=== PATIENT | male | born 1995 | race American Indian/Alaskan Native ===

== ENCOUNTER 2017-01-01 17:23 | Inpatient (IN) | payer MEDICAID ==
[2017-01-01 17:23] VITALS: BMI 29.7
[2017-01-01 18:15] LABS: BASO % 1.1 % (0.0-2.0); EOS % 1.1 % (0.0-4.0); LYMPH # 1.2 K/uL (1.0-4.3); LYMPH % 33.4 % (20.0-40.0); MEAN CELL VOLUME 90.5 fL (80.0-94.0); MEAN CORPUSCULAR HEMOGLOBIN 31.1 pg (27.0-31.0); MEAN CORPUSCULAR HGB CONC 34.4 g/dL (33.0-37.0); MEAN PLATELET VOLUME 7.1 fL (7.2-11.7); MONO # 0.3 K/uL (0.0-0.8); MONO % 7.9 % (0.0-10.0); RED CELL DISTRIBUTION WIDTH 13.1 % (11.5-14.5); WHITE BLOOD COUNT 3.5 K/uL (4.8-10.8)
[2017-01-01 18:26] LABS: ALB/GLOB RATIO 1.6 (1.0-2.1); ALCOHOL SERUM < 10 mg/dl (0-10); ALKALINE PHOSPHATASE 58 U/L (38-126); ALT/SGPT 37 U/L (21-72); AST/SGOT 28 U/L (17-59); BILIRUBIN,TOTAL 0.7 mg/dL (0.2-1.3); BLOOD UREA NITROGEN 9 mg/dL (9-20); CALCIUM 9.7 mg/dl (8.6-10.4); CARBON DIOXIDE 27 mmol/L (22-30); CHLORIDE 100 mmol/L (98-107); GFR AFRICAN-AMERICAN > 60; GLUCOSE,RANDOM 83 mg/dL (75-110); POTASSIUM 4.1 mmol/L (3.6-5.2); SODIUM 142 mmol/L (132-148); TOTAL PROTEIN 6.9 g/dL (6.3-8.3)
[2017-01-01 18:36] LABS: URINE BILIRUBIN NEGATIVE (NEGATIVE); URINE BLOOD NEGATIVE (NEGATIVE); URINE COLOR Straw (YELLOW); URINE GLUCOSE (UA) NORMAL (Normal); URINE KETONE NEGATIVE (NEGATIVE); URINE LEUKOCYTE ESTERASE NEG Leu/uL (Negative); URINE PROTEIN NEGATIVE (NEGATIVE); URINE UROBILINOGEN NORMAL mg/dL (0.2-1.0); WBC URINE < 1 /hpf (0-5)
--- NOTE | 2017-01-01 18:46 | C.PDOC ---
History Of Present Illness Pt is here requesting detox from Heroin. Time Seen by Provider: 01/01/17 17:45 Chief Complaint (Nursing): Substance Abuse History Per: Patient, Family Onset/Duration Of Symptoms: Days Current Symptoms Are (Timing): Still Present Suicide/Self Injury Attempted (Context): None Modifying Factor(s): Narcotics Severity: Moderate Associated Symptoms: denies: Suicidal Thoughts, Suicidal Plan Additional History Per: Prior Records Past Medical History Reviewed: Historical Data, Nursing Documentation, Vital Signs Vital Signs: Last Vital Signs Temp 98.8 F 01/01/17 17:27 Pulse 83 01/01/17 17:27 Resp 18 01/01/17 17:27 BP 118/83 01/01/17 17:27 Pulse Ox 100 01/01/17 18:47 - Medical History PMH: Asthma Surgical History: No Surg Hx - [facility] Procedures DETOXIFICATION SERVICES FOR SUBSTANCE ABUSE TREATMENT (01/01/16) INJECT ANTIBIOTIC (06/17/13) INJECT/INFUSE NEC (07/01/14) NEBULIZER THERAPY (03/02/07) PSYCHIA INTERV/EVAL NEC (07/01/14) SUTURE OF LIP LACERATION (11/26/13) TETANUS TOXOID ADMINIST (07/16/12) VENOUS PUNCTURE NEC (07/01/14) Family History: States: Unknown Family Hx - Social History Hx Tobacco Use: Yes Hx Alcohol Use: Yes Hx Substance Use: Yes (Snorts heroin) - Immunization History Hx Tetanus Toxoid Vaccination: Yes (2003) Hx Influenza Vaccination: No Hx Pneumococcal Vaccination: No Review Of Systems Except As Marked, All Systems Reviewed And Found Negative. Constitutional: Negative for: Fever, Weakness Cardiovascular: Negative for: Chest Pain Respiratory: Negative for: Shortness of Breath Gastrointestinal: Negative for: Vomiting, Abdominal Pain Musculoskeletal: Negative for: Neck Pain Skin: Negative for: Rash Neurological: Negative for: Weakness, Numbness Psych: Negative for: Psychosis Physical Exam - Physical Exam Appears: Non-toxic, No Acute Distress Skin: Normal Color, Warm, Dry, No Rash Head: Atraumatic, Normacephalic Eye(s): bilateral: Normal Inspection, PERRL, EOMI Neck: Normal ROM, Supple Cardiovascular: Rhythm Regular Respiratory: Normal Breath Sounds, No Accessory Muscle Use Gastrointestinal/Abdominal: Soft, No Tenderness Back: No CVA Tenderness Extremity: Normal ROM Neurological/Psych: Oriented x3, Normal Motor, Normal Sensation ED Course And Treatment - Laboratory Results Result Diagrams: 01/01/17 18:06 01/01/17 18:06 Lab Interpretation: No Acute Changes O2 Sat by Pulse Oximetry: 100 Pulse Ox Interpretation: Normal Progress Note: Pt is medically stable for detox admission. Disposition Counseled Patient/Family Regarding: Studies Performed, Diagnosis, Smoking Cessation - Disposition Disposition: HOSPITALIZED Disposition Time: 18:59 Condition: STABLE - Clinical Impression Clinical Impression: Opioid use disorder, severe, dependence Decision To Admit - Pt Status Changed To: Hospital Disposition Of: Inpatient - Admit Certification Admit to Inpatient:: After my assessment, the patient will require hospitalization for at least two midnights. This is because of the severity of symptoms shown, intensity of services needed, and/or the medical risk in this patient being treated as an outpatient. - InPatient: Physician Admission Certification: I certify that this patient requires 2 or more midnights of care for the following reason:: Detox. - . Bed Request Type: Detox Admitting Physician: Gina Escoto Patient Diagnosis: Opioid use disorder, severe, dependence
--- NOTE | 2017-01-01 19:20 | PCM.BM ---
<Jeannie Langston - Last Filed: 01/01/17 19:22> Treatment Plan Problems - Problems identified on initial assessmt Problem 1 Date Initiated: 01/01/17 Time Initiated: 19:23 Assessment reference: NA Status: Active potiential for sibilant musical ronchi related to airway constriction Date Initiated: 01/01/17 Time Initiated: 19:24 Assessment reference: NA Status: Active potiential for opiate withdrawal Date Initiated: 01/01/17 Time Initiated: 19:25 Assessment reference: NA Status: Active Treatment assets and liabiliti Patient Assests: cooperative, ADL independent, physically healthy, good past tx response Patient Liabilities: substance abuse - Milieu Protocol Maintain good personal hygiene: daily Encourage regular showers, daily Remind patient to perform daily oral care, daily Assist patient to perform ADL's Maintain personal safety: every shift Educate patient to report safety concerns to staff, every shift Monitor environment for contraband/sharps Medication safety: Monitor for expected outcome, potential side effects: every shift, Assess barriers to learning: every shift, Assess readiness for medication education: every shift <Endy Pederson - Last Filed: 01/04/17 13:30> - Diagnosis (1) Opioid use disorder, severe, dependence Status: Acute Interventions: 01/04/17 13:29 * Assess 7x/week regarding severity of withdrawal * Educate regarding risks, benefits, side effects and alternatives of medications * Use Motivational Interviewing for abstinence * Use CBT for relapse prevention * Medication management for withdrawal symptoms * Encourage medication assisted treatment *
[2017-01-01] MEDS: Albuterol HFA 90 mcg/actuation (8 g) INH PRN (22:33)
[2017-01-02] MEDS ORDERED: Buprenorphine Hydrochloride 2 mg SL ONE ×2 (09:41→11:00)
[2017-01-02] MEDS: Albuterol HFA 90 mcg/actuation (8 g) INH PRN ×2 (14:31→23:01)
[2017-01-03] MEDS: Buprenorphine Hydrochloride 2 mg SL SCH (12:02)
[2017-01-03 15:36] VITALS: RESP 18
--- NOTE | 2017-01-03 19:54 | PCM.PSYCH ---
Initial Psychiatric Evaluation - Initial Psychiatric Evaluation Legal Status: Capacity (I want to get clean) Chief Complaint (in patient's own words): i want to get clean Patient's Reaction to Hospitalization: i was glad there was abed available. History of Present Illness and Precipitating Events: PT IS A 21 YEAR OLD SINGL, DOMICILED UNEMPLOYED WITH 2 CHILDREN A SON AGE 4 ZEKE DAUGHTER AGE 1 MALE WHO PREASENTED WITH HEROIN USE AND COCAINE USE. PT STARTING USING AG17. HE USES 15-20 BAGS A DAY. HE STARTWS USING CRACK/COCAINE AGE 18. HE HAS 1 PREVIOUS DETOX. pARWNTS WHE HE WAS 2 YEARS OLD. HE HAS 1 FULL BROTHER AND 6 HALF-SISTERS AND 7 HALF BROTHERS. ALL SHARE THE SAME FATHER. HE HAS NEVER BEEN IN A PSYCH HOSPITAL, HE HAS NEVER ATTEMPTED SUICIDE HE HAS BEEN PRESCRIBED MEDS ON AN OUTPATIENT BASIS fFAMILY PSYCH HISTORY: PER PT MOTHER IS ALWAYS TRYING TO KILL HERSELF. FAMILY SUBSTANCE ABUSE MOTHER, MATERNAL GRAND MOTHER AND MATERNAL UNCLE ALL USE HEROIN AND COCAINE PT HAS B EEN ARRESTED FOR SHOPLIFTING AND THEFT.hE SPENT 8 MONTHS IN [facility] [place] . HE LEFT [employer] WHEN HE WAS IN THE 10TH GRADE. HE NEVER EARNED A GED. HE LASY WORKED LAST MONTH. PT'S WITHDRAWAL SYMPTOMS ARE: RHINORRHEA STOMACH "BUBBLING, INSOMNIAPOOR APPETITE MYALGIAS ARHTAGLIAS Current Medications: Active Medications Generic Name Dose Route Start Last Admin Trade Name Freq PRN Reason Stop Dose Admin Albuterol 1 puff 01/01/17 20:13 01/02/17 23:01 Ventolin Hfa 90 Mcg/Actuation (8 G) INH 2 inhaler RQ6 PRN Administration musical ronchi Buprenorphine HCl 6 mg 01/03/17 10:00 01/03/17 12:02 Subutex SL 01/06/17 09:59 4 mg DAILY JODEE Administration Taper Hydroxyzine HCl 50 mg 01/02/17 10:55 01/03/17 12:07 Atarax PO 50 mg Q6 PRN Administration Anxiety Ibuprofen 600 mg 01/01/17 22:00 01/02/17 12:14 Motrin Tab PO 600 mg Q6 PRN Administration pain Trazodone HCl 50 mg 01/01/17 19:41 01/02/17 21:42 Desyrel PO 50 mg HS PRN Administration Insomnia Past Psychiatric History - Past Psychiatric History Prior Professional Help: SEE HPI Pertinent Medical Hx (Current Medical&Sleep Prob, Allergies): Allergies Allergy/AdvReac Type Severity Reaction Status Date / Time lemon Allergy RASH Verified 01/01/17 17:48 peanut Allergy RASH Verified 01/01/17 17:48 Albuterol HFA [Ventolin HFA 90 mcg/actuation (8 g)] 1 puff INH RQ4 PRN #0 inhaler 01/02/16 Review of Systems - Constitutional Constitutional: Chills, Sweats, Weakness, Malaise - EENT Eyes: UNREMARKABLE Ears: UNREMARKABLE Additional comments: RHINORRHEA - Cardiovascular Cardiovascular: UNREMARKABLE - Respiratory Respiratory: UNREMARKABLE - Gastrointestinal Gastrointestinal: Cramping, Loose Stools, Nausea, Vomiting - Genitourinary Genitourinary: UNREMARKABLE - Reproductive: Male Reproductive:Male: UNREMARKABLE - Musculoskeletal Musculoskeletal: Arthralgias, Myalgias - Integumentary Integumentary: UNREMARKABLE - Neurological Neurological: UNREMARKABLE - Psychiatric Psychiatric: UNREMARKABLE - Endocrine Endocrine: UNREMARKABLE - Hematologic/Lymphatic Hematologic: UNREMARKABLE Mental Status Examination - Personal Presentation Personal Presentation: Looks younger than stated age - Affect Affect: Constricted - Motor Activity Motor Activity: Calm - Reliability in Providing Information Reliability in Providing Information: Good - Speech Speech: Organized - Mood Mood: Anxious - Formal Thought Process Formal Thought Process: No Impairment - Obsessions/Compulsions Obsessions: None Compulsions: None - Cognitive Functions Orientation: Person, Place, Situation, Time Sensorium: Alert Attention/Concentration: Attentive Abstract Thinking: As evidence by abstract perception of proverbs Estimate of Intelligence: Average Judgement: Intact, as evidence by: Insight regarding need for hospitalization Memory: Recent intact, as evidence by: Ability to recall events of the day, Remote intact, as evidenced by: Abilit to recall sig. life events - Risk Risk: Withdrawal - Strength & Assets Inventory Strength & Assets Inventory: Intelligence, Employment history, Cooperative - Limitations Limitations: Living alone DSM 5 DX - DSM 5 DSM 5 Diagnosis: OPIATE USE DISORDER AL CBT RECREATIONAL,GROUP AND MILIEU THERAPY SUPPORTIVE PSYCHOTHERAPY OPIATE WITHDRAWAL SUBUTEX AND PRNS NEEDED COCAINE USE DISORDER AL CBT GROUP THERAPY SUPPO\\RTIVE PSYCHOTHERAPY COCAINE WITHDRAWAL PRNS NECESSARY - Recommended/Plan of Treatment Treatment Recommendations and Plan of Treatment: SEE ABOVE Projected ELOS: 5 DAYS Prognosis: GOOD WITH TREATMENT Discharge Plan and Discharge Criteria: NO ACUTE WITHDRAWAL SYMPTOMS KALEIDOSCOPE - Smoking Cessation Smoking Cessation Initiated: Yes
--- NOTE | 2017-01-03 20:08 | PCM.PYCHPN ---
Psychiatric Progress Note - Psychiatric Progress Note Patient seen today, length of contact: 17 MIN Patient Chief Complaint: i INEED HELP TO STAY SOBER Problems Identified/Issues Discussed: RELAPSE PREVENTION PAWS Medical Problems: NOTHING ACUTE Diagnostic Results: REVIEWED DSM 5 Symptoms Update: INSOMNIA ARTHRAGLIAS Medication Change: Yes (TAPER CHANGES DAILY) Medical Record Reviewed: Yes Mental Status Examination - Cognitive Function Orientation: Person, Place, Situation, Time Memory: Intact Concentration: WNL Association: WN Fund of Knowledge: WNL - Mood Mood: Anxious - Affect Affect: Constricted - Speech Speech: Appropriate - Formal Thought Process Formal Thought Process: No Impairment - Suicidal Ideation Suicidal Ideation: No - Homicidal Ideation Homicidal Ideation: No Goal/Treatment Plan - Goal/Treatment Plan Progress Toward Problem(s) and Goals/Treatment Plan: OPIATE WITHDRAWAL SUBUTEX OPIATE USE DISORDER ME CBT GROUP.MILIEU AND RECREACOTIONAL THERAPY SUPPORTIVE PSYCHOTHERAPY COCAINE WITHDRAWAL SUPPORTIVE PSYCHOTHERAPY GROUPS COCAINE USE DISORDER ME CBT SUPPORTIVE PSYCHOTHERAPY Estimated Date of D/C: 01/05/17 - Smoking Cessation Smoking Cessation Initiated: Yes
[2017-01-04] MEDS: Buprenorphine Hydrochloride 2 mg SL SCH (09:03)
--- NOTE | 2017-01-04 09:49 | PCM.PYCHDC ---
Mental Status Examination - Mental Status Examination Orientation: Person, Place, Situation, Time Memory: Intact Mood: Anxious Affect: Broad Speech: Appropriate Attention: WNL Concentration: WNL Association: WNL Fund of Knowledge: Poor Formal Thought Process: No Impairment Suicidal Ideation: No Current Homicidal Ideation?: No Discharge Summary - Discharge Note Reason for Hospitalization: Opioid detox Consultations:: List each consultation separately and include: 1. Reason for request. 2. Findings. 3. Follow-up Summary of Hospital Course include:: 1. Description of specific treatment plan utilized for patients during their course of treatmen. 2. Summarize the time- course for resolution of acute symptoms and/or regressed behaviors. 3. Describe issues identified and worked on during hospitalization. 4. Describe medication utilized. 5. Describe medical problems identified and treated. 6. Reassessment of suicide risk Summary of Hospital Course: The pt was admitted and started on treatment with psychotherapy, support, psychoeducation and medications. UT and CBT used. The pt attended groups and activities, as well as milieu therapy. All the risks and benefits of medications are discussed and the patient understood and agreed. The pt improved with the treatments provided. However, he rushed his treatment and skipped a dose. He claimed he was sedated and was doing ok with this so far Risks discussed. After care discussed with the patient. He asked for a referral to an IOP - Final Diagnosis (DSM 5) Condition upon Discharge: STABLE DSM 5: Opioid withdrawal Opioid use d/o - severe Cocaine use d/o - severe Disposition: HOME/ ROUTINE Follow-up Treatment Plan: Continue below medications after discharge. Follow after care plan as discussed. Use relapse prevention skills Return to ER or call 911 if suicidal, homicidal or symptoms relapse. Stay away from stress, alcohol and drugs. See primary doctor once a year. Prescriptions/Medication Reconciliation: Albuterol HFA [Ventolin HFA 90 mcg/actuation (8 g)] 1 puff INH RQ6 PRN #1 inhaler PRN Reason: musical ronchi hydrOXYzine HCl [Atarax] 50 mg PO BID PRN #60 tab PRN Reason: Anxiety traZODone [Desyrel] 50 mg PO HS PRN #30 tab PRN Reason: Insomnia
[2017-01-04 11:04] VITALS: BP 125/72; PULSE 85; TEMP 98; O2SAT 100
== END 2017-01-04 11:00 | disposition home or self-care (01) | DRG 745 ==
LOC: C.ER 17:23 → C.7D 18:59
PROVIDERS: ADMIT Psychiatry & Neurology Psychiatry; ATTEND Psychiatry & Neurology Psychiatry
PROC: HZ2ZZZZ Detoxification Services for Substance Abuse Treatment (ICD-10-PCS; principal; 2017-01-01)
PROC: GZ56ZZZ Individual Psychotherapy, Supportive (ICD-10-PCS; 2017-01-01)
DX: F11.23 Opioid dependence with withdrawal (principal); F14.10 Cocaine abuse, uncomplicated; F17.210 Nicotine dependence, cigarettes, uncomplicated; J45.909 Unspecified asthma, uncomplicated; G47.00 Insomnia, unspecified

== ENCOUNTER → 2017-06-08 19:32 | Emergency (ER) | payer SELFPAY ==
[2017-06-08 19:32] VITALS: BMI 29.7
== END | disposition left against medical advice (07) ==
LOC: C.ER 19:32
DX: Z02.89 Encounter for other administrative examinations (principal)

== ENCOUNTER 2017-06-13 15:45 | Inpatient (IN) | payer SELFPAY ==
[2017-06-13 15:45] VITALS: BMI 29.7
[2017-06-13 17:12] LABS: URINE BILIRUBIN NEGATIVE (NEGATIVE); URINE BLOOD NEGATIVE (NEGATIVE); URINE CLARITY Clear (Clear); URINE COLOR Yellow (YELLOW); URINE GLUCOSE (UA) NORMAL (Normal); URINE LEUKOCYTE ESTERASE NEG Leu/uL (Negative); URINE NITRATE NEGATIVE (NEGATIVE); URINE PROTEIN NEGATIVE (NEGATIVE); URINE UROBILINOGEN NORMAL mg/dL (0.2-1.0)
[2017-06-13 17:47] LABS: BARBITURATES, UR NEGATIVE (NEGATIVE); BENZODIAZEPINES, UR NEGATIVE (NEGATIVE); PHENCYCLIDINE, UR NEGATIVE (NEGATIVE)
[2017-06-13 18:06] LABS: OPIATES, UR POSITIVE (NEGATIVE)
[2017-06-13 19:49] LABS: BASO % 0.6 % (0.0-2.0); EOS # 0.3 K/uL (0.0-0.7); EOS % 4.2 % (0.0-4.0); HEMOGLOBIN 13.3 g/dL (12.0-18.0); LYMPH # 2.1 K/uL (1.0-4.3); LYMPH % 35.2 % (20.0-40.0); MEAN CELL VOLUME 92.3 fL (80.0-94.0); MEAN CORPUSCULAR HEMOGLOBIN 31.6 pg (27.0-31.0); MEAN CORPUSCULAR HGB CONC 34.2 g/dL (33.0-37.0); MEAN PLATELET VOLUME 7.1 fL (7.2-11.7); MONO # 0.4 K/uL (0.0-0.8); MONO % 7.2 % (0.0-10.0); NEUT # 3.2 K/uL (1.8-7.0); NEUT % 52.8 % (50.0-75.0); NRBC % 0.1 % (0.0-2.0); RBC 4.22 Mil/uL (4.40-5.90); RED CELL DISTRIBUTION WIDTH 12.6 % (11.5-14.5); WHITE BLOOD COUNT 6.1 K/uL (4.8-10.8)
[2017-06-13 20:02] LABS: ALB/GLOB RATIO 1.6 (1.0-2.1); ALBUMIN 4.1 g/dL (3.5-5.0); ALT/SGPT 26 U/L (21-72); AST/SGOT 27 U/L (17-59); BLOOD UREA NITROGEN 14 mg/dL (9-20); CALCIUM 9.3 mg/dl (8.6-10.4); GFR AFRICAN-AMERICAN > 60; GFR NON-AFRICAN AMERICAN > 60
--- NOTE | 2017-06-13 20:52 | C.PDOC ---
History Of Present Illness Pt is here requesting detox from Heroin. Time Seen by Provider: 06/13/17 18:09 Chief Complaint (Nursing): Substance Abuse History Per: Patient Onset/Duration Of Symptoms: Days Current Symptoms Are (Timing): Still Present Suicide/Self Injury Attempted (Context): None Modifying Factor(s): Narcotics, Crack Severity: Moderate Associated Symptoms: denies: Suicidal Thoughts, Suicidal Plan Additional History Per: Prior Records Past Medical History Reviewed: Historical Data, Nursing Documentation, Vital Signs Vital Signs: Last Vital Signs Temp 98.1 F 06/13/17 16:47 Pulse 78 06/13/17 16:47 Resp 16 06/13/17 16:47 BP 144/80 06/13/17 16:47 Pulse Ox 98 06/13/17 16:47 - Medical History PMH: Asthma - [facility] Procedures DETOXIFICATION SERVICES FOR SUBSTANCE ABUSE TREATMENT (01/01/17) INDIVIDUAL PSYCHOTHERAPY, SUPPORTIVE (01/01/17) INJECT ANTIBIOTIC (06/17/13) INJECT/INFUSE NEC (07/01/14) NEBULIZER THERAPY (03/02/07) PSYCHIA INTERV/EVAL NEC (07/01/14) SUTURE OF LIP LACERATION (11/26/13) TETANUS TOXOID ADMINIST (07/16/12) VENOUS PUNCTURE NEC (07/01/14) Family History: States: Unknown Family Hx - Social History Hx Tobacco Use: Yes Hx Alcohol Use: No (DENIED) Hx Substance Use: Yes (Snorts Heroin and Smokes Cocaine) - Immunization History Hx Tetanus Toxoid Vaccination: Yes (2003) Hx Influenza Vaccination: No Hx Pneumococcal Vaccination: No Review Of Systems Except As Marked, All Systems Reviewed And Found Negative. Constitutional: Negative for: Fever, Weakness Cardiovascular: Negative for: Chest Pain Respiratory: Negative for: Shortness of Breath Gastrointestinal: Negative for: Vomiting, Abdominal Pain Musculoskeletal: Negative for: Neck Pain Skin: Negative for: Rash Neurological: Negative for: Weakness, Numbness Psych: Negative for: Psychosis Physical Exam - Physical Exam Appears: Non-toxic, No Acute Distress Skin: Normal Color, Warm, Dry, No Rash Head: Atraumatic, Normacephalic Eye(s): bilateral: PERRL, EOMI Neck: Normal ROM, Supple Cardiovascular: Rhythm Regular Respiratory: Normal Breath Sounds, No Accessory Muscle Use Gastrointestinal/Abdominal: Soft, No Tenderness Extremity: Normal ROM Neurological/Psych: Oriented x3, Normal Motor, Normal Sensation ED Course And Treatment - Laboratory Results Result Diagrams: 06/13/17 19:44 06/13/17 19:44 Lab Interpretation: No Acute Changes O2 Sat by Pulse Oximetry: 98 Pulse Ox Interpretation: Normal Progress Note: Pt is medically stable for detox admission. Disposition Counseled Patient/Family Regarding: Studies Performed, Diagnosis, Smoking Cessation - Disposition Disposition: HOSPITALIZED Disposition Time: 20:59 Condition: STABLE - Clinical Impression Clinical Impression: Opioid use disorder, severe, dependence Decision To Admit - Pt Status Changed To: Hospital Disposition Of: Inpatient - Admit Certification Admit to Inpatient:: After my assessment, the patient will require hospitalization for at least two midnights. This is because of the severity of symptoms shown, intensity of services needed, and/or the medical risk in this patient being treated as an outpatient. - InPatient: Physician Admission Certification: I certify that this patient requires 2 or more midnights of care for the following reason:: Detox. - . Bed Request Type: Detox Admitting Physician: Nidia Lockwood Patient Diagnosis: Opioid use disorder, severe, dependence
--- NOTE | 2017-06-13 21:30 | PCM.BM ---
<Jeannie Langston - Last Filed: 06/13/17 21:28> Treatment Plan Problems - Problems identified on initial assessmt potiential for opiate withdrawal Date Initiated: 06/13/17 Time Initiated: 21:29 Assessment reference: NA Status: Active Treatment assets and liabiliti Patient Assests: cooperative, ADL independent, physically healthy Patient Liabilities: substance abuse, legal issue - Milieu Protocol Maintain good personal hygiene: daily Encourage regular showers, daily Remind patient to perform daily oral care, daily Assist patient to perform ADL's Maintain personal safety: every shift Educate patient to report safety concerns to staff, every shift Monitor environment for contraband/sharps Medication safety: Monitor for expected outcome, potential side effects: every shift, Assess barriers to learning: every shift, Assess readiness for medication education: every shift <Endy Pederson - Last Filed: 06/16/17 01:04> - Diagnosis (1) Opioid use disorder, severe, dependence Status: Acute Interventions: 06/16/17 01:04 * Assess 7x/week regarding severity of withdrawal * Educate regarding risks, benefits, side effects and alternatives of medications * Use Motivational Interviewing for abstinence * Use CBT for relapse prevention * Medication management for withdrawal symptoms * Encourage medication assisted treatment * <Lyly Qureshi - Last Filed: 06/16/17 11:32> Family Contact Family involvement: Patient does not wish Family/SO involvement - Goals for Treatment Patient goals for treatment: Complete detox and apply for STR. Discharge/Continuing Care - Education Needs Education Needs: Patient Medication, Patient Diagnosis/Disease Process, Patient Coping Skills, Patient Anger Management skills, Patient Placement options, Patient Community resources, Significant Other Medication, Significant Other Diagnosis/Disease Process, Significant Other Coping Skills, Significant Other Anger Management skills, Significant Other Placement options, Significant Other Community resources - Discharge Discharge Criteria: No longer exhibiting s/s of withdrawal, Reduction of target symptoms Discharge to:: Substance Abuse Rehab - Treatment Team Participation Patient/Family/SO Statement: 06/16/17 11:32 "I think I wanna go from here to a rehab." Discussed with Family/SO: No Was Patient/Family/SO present at Treatment Team Meeting: Yes
[2017-06-13 21:40] VITALS: RESP 18
[2017-06-13] MEDS ORDERED: Albuterol HFA 90 mcg/actuation (8 g) INH PRN (22:27)
--- NOTE | 2017-06-14 13:11 | PCM.PSYCH ---
Initial Psychiatric Evaluation - Initial Psychiatric Evaluation Type of Admission: Voluntary Legal Status: Capacity Chief Complaint (in patient's own words): "Heroin" History of Present Illness and Precipitating Events: The patient is seen, chart reviewed and case discussed. This is a 21-year-old -[place] male, single with 2 children age 24 who are with their mother's right now. The patient lives with his new and her 8 -year-old daughter but according to staff he may have been drawn out by his 's mother recently. The was in detox here last week and allegedly he was thrown out of home during that time. The patient is going on and off jobs. He is known from a previous admission. He is here for heroin detox; using 15 bags intranasally for the past 3 years. He has been also using crack cocaine during the same time, and smoking marijuana but not every day. He smokes 5 cigarettes a day. He denies alcohol and other drugs. He has been to detox 3 times but never to rehabilitation. He denies psych symptoms. Past psych history: Denies Family psych history: Mother used heroin. Medical history: Asthma and hepatitis C Current Medications: Active Medications Generic Name Dose Route Start Last Admin Trade Name Freq PRN Reason Stop Dose Admin Albuterol 1 puff 06/13/17 22:27 Ventolin Hfa 90 Mcg/Actuation (8 G) INH RQ6 PRN Shortness of Breath Clonidine HCl 0.1 mg 06/13/17 22:04 Catapres PO Q8 PRN COWS Score More or Equal to 5 Hydroxyzine HCl 25 mg 06/13/17 22:07 Atarax PO TID PRN Anxiety Ibuprofen 600 mg 06/13/17 22:06 Motrin Tab PO TID PRN Pain, moderate (4-7) Loperamide HCl 2 mg 06/13/17 22:04 Imodium PO Q8 PRN Diarrhea Ondansetron HCl 4 mg 06/13/17 22:04 Zofran Tab PO Q8 PRN Nausea/Vomiting Trazodone HCl 50 mg 06/13/17 22:05 06/13/17 22:56 Desyrel PO 50 mg HS PRN Administration Insomnia Past Psychiatric History - Past Psychiatric History Previous Treatment History: None Pertinent Medical Hx (Current Medical&Sleep Prob, Allergies): Allergies Allergy/AdvReac Type Severity Reaction Status Date / Time lemon Allergy RASH Verified 01/01/17 17:48 peanut Allergy RASH Verified 01/01/17 17:48 Albuterol HFA [Ventolin HFA 90 mcg/actuation (8 g)] 1 puff INH RQ4 PRN #0 inhaler 01/02/16 Albuterol HFA [Ventolin HFA 90 mcg/actuation (8 g)] 1 puff INH RQ6 PRN #1 inhaler 01/04/17 hydrOXYzine HCl [Atarax] 50 mg PO BID PRN #60 tab 01/04/17 traZODone [Desyrel] 50 mg PO HS PRN #30 tab 01/04/17 Review of Systems - Neurological Neurological: UNREMARKABLE - Psychiatric Psychiatric: Abnormal Sleep Pattern, Anxiety, Irritability. absent: Hallucinations, Homicidal Ideation, Paranoia, Suicidal Ideation Mental Status Examination - Personal Presentation Personal Presentation: Looks stated age - Affect Affect: Constricted - Motor Activity Motor Activity: Calm - Reliability in Providing Information Reliability in Providing Information: Fair - Speech Speech: Organized - Mood Mood: Anxious - Formal Thought Process Formal Thought Process: No Impairment - Cognitive Functions Orientation: Person, Place, Situation, Time Sensorium: Alert Attention/Concentration: Attentive Estimate of Intelligence: Average Judgement: Intact, as evidence by: Insight regarding need for hospitalization Memory: Recent intact, as evidence by: Ability to recall events of the day, Remote intact, as evidenced by: Ability to recall historical events - Risk Risk: Withdrawal, Diminished functioning - Strength & Assets Inventory Strength & Assets Inventory: Cooperative DSM 5 DX - DSM 5 DSM 5 Diagnosis: Opioid withdrawal Opioid use - severe cocaine use d/o - severe cannabis use d/o - moderate - Recommended/Plan of Treatment Treatment Recommendations and Plan of Treatment: Start detox Gabapentin for augmentation As needed medications All risks, benefits and alternatives of the meds discussed, and the pt agreed and understood. Attend groups and activities Supportive therapy and psychoeducation MA for abstinence CBT for relapse prevention Encourage MAT Refer to rehab or IOP, and self-help groups Smoking cessation with MA Nicotine patch if needed 34 min Projected ELOS: 4-5 days Prognosis: good with treatment - Smoking Cessation Smoking Cessation Initiated: Yes
[2017-06-14] MEDS ORDERED: Buprenorphine Hydrochloride 2 mg SL ONE ×2 (16:06→17:15)
[2017-06-14] MEDS: Vitamins A & D Oint UD Foilpak TOP PRN (21:03)
[2017-06-15] MEDS: Buprenorphine Hydrochloride 2 mg SL SCH (11:27)
[2017-06-15] MEDS: Vitamins A & D Oint UD Foilpak TOP PRN (11:50)
--- NOTE | 2017-06-16 01:04 | PCM.PYCHPN ---
Psychiatric Progress Note - Psychiatric Progress Note Patient seen today, length of contact: 15 min Patient Chief Complaint: "OK" Problems Identified/Issues Discussed: The pt is seen, chart reviewed, case discussed with staff. The pt is compliant with medications and reports no side-effects. Symptoms are improving but needs more time to stabilize. After care discussed, support and psychoeducation given. Medication Change: Yes (detox changes daily) Medical Record Reviewed: Yes Mental Status Examination - Cognitive Function Orientation: Person, Place, Situation, Time Memory: Intact Attention: Poor Concentration: Poor Association: WNL Fund of Knowledge: Poor - Mood Mood: Anxious - Affect Affect: Constricted - Speech Speech: Appropriate - Formal Thought Process Formal Thought Process: No Impairment - Suicidal Ideation Suicidal Ideation: No - Homicidal Ideation Homicidal Ideation: No Goal/Treatment Plan - Goal/Treatment Plan Need for Continued Stay: Discharge may exacerbated symptoms, Severe functional impairment Progress Toward Problem(s) and Goals/Treatment Plan: Start detox Gabapentin for augmentation As needed medications All risks, benefits and alternatives of the meds discussed, and the pt agreed and understood. Attend groups and activities Supportive therapy and psychoeducation [place] for abstinence CBT for relapse prevention Encourage MAT Refer to rehab or IOP, and self-help groups Smoking cessation with [place] Nicotine patch if needed
[2017-06-16] MEDS: Buprenorphine Hydrochloride 2 mg SL SCH (09:41)
[2017-06-16 10:31] VITALS: BP 93/57; PULSE 65; TEMP 97.5; O2SAT 98
--- NOTE | 2017-06-16 11:08 | PCM.PYCHDC ---
Mental Status Examination - Mental Status Examination Orientation: Person Discharge Summary - Discharge Note Consultations:: List each consultation separately and include: 1. Reason for request. 2. Findings. 3. Follow-up Summary of Hospital Course include:: 1. Description of specific treatment plan utilized for patients during their course of treatmen. 2. Summarize the time- course for resolution of acute symptoms and/or regressed behaviors. 3. Describe issues identified and worked on during hospitalization. 4. Describe medication utilized. 5. Describe medical problems identified and treated. 6. Reassessment of suicide risk Summary of Hospital Course: The patient is seen, chart reviewed and case discussed. This is a 21-year-old -Eth[place]ian male, single with 2 children age 24 who are with their mother's right now. The patient lives with his new and her 8 -year-old daughter but according to staff he may have been drawn out by his 's mother recently. The was in detox here last week and allegedly he was thrown out of home during that time. The patient is going on and off jobs. He is known from a previous admission. He is here for heroin detox; using 15 bags intranasally for the past 3 years. He has been also using crack cocaine during the same time, and smoking marijuana but not every day. He smokes 5 cigarettes a day. He denies alcohol and other drugs. He has been to detox 3 times but never to rehabilitation. He denies psych symptoms. Past psych history: Denies Family psych history: Mother used heroin. Medical history: Asthma and hepatitis C - Diagnosis (1) Opioid use disorder, severe, dependence Status: Acute - Final Diagnosis (DSM 5) Condition upon Discharge: STABLE Disposition: AGAINST MEDICAL ADVICE Follow-up Treatment Plan: Start detox Gabapentin for augmentation As needed medications All risks, benefits and alternatives of the meds discussed, and the pt agreed and understood. Attend groups and activities Supportive therapy and psychoeducation [place] for abstinence CBT for relapse prevention Encourage MAT Refer to rehab or IOP, and self-help groups Smoking cessation with [place] Nicotine patch if needed
== END 2017-06-16 11:23 | disposition left against medical advice (07) | DRG 894 ==
LOC: C.ER 15:45 → C.7D 21:00
PROVIDERS: ADMIT Psychiatry & Neurology Psychiatry; ATTEND Psychiatry & Neurology Psychiatry
DX: F11.23 Opioid dependence with withdrawal (principal); F12.90 Cannabis use, unspecified, uncomplicated; F14.90 Cocaine use, unspecified, uncomplicated; F17.210 Nicotine dependence, cigarettes, uncomplicated; J45.909 Unspecified asthma, uncomplicated

== ENCOUNTER 2017-08-18 14:10 | Emergency (ER) | payer OTHER ==
[2017-08-18 14:10] VITALS: BMI 29.7
[2017-08-18 14:17] VITALS: BP 114/78; PULSE 78; RESP 16; TEMP 98.3; O2SAT 99
--- NOTE | 2017-08-18 14:50 | C.PDOC ---
History Of Present Illness 21-year-old male, presents to the emergency department requesting detox from heroin. Denies any nausea/vomiting, withdrawal, SI/HI. Time Seen by Provider: 08/18/17 14:37 Chief Complaint (Nursing): Substance Abuse History Per: Patient History/Exam Limitations: no limitations Past Medical History Reviewed: Historical Data, Nursing Documentation, Vital Signs Vital Signs: Last Vital Signs Temp 98.3 F 08/18/17 14:15 Pulse 78 08/18/17 14:15 Resp 16 08/18/17 14:15 BP 114/78 08/18/17 14:15 Pulse Ox 99 08/18/17 20:05 - Medical History PMH: Asthma Denies: Depression, Diabetes, Hepatitis, HIV, HTN, Chronic Kidney Disease, Seizures, Sexually Transmitted Disease - [facility] Procedures DETOXIFICATION SERVICES FOR SUBSTANCE ABUSE TREATMENT (01/01/17) INDIVIDUAL PSYCHOTHERAPY, SUPPORTIVE (01/01/17) INJECT ANTIBIOTIC (06/17/13) INJECT/INFUSE NEC (07/01/14) NEBULIZER THERAPY (03/02/07) PSYCHIA INTERV/EVAL NEC (07/01/14) SUTURE OF LIP LACERATION (11/26/13) TETANUS TOXOID ADMINIST (07/16/12) VENOUS PUNCTURE NEC (07/01/14) Family History: States: No Known Family Hx - Social History Hx Tobacco Use: Yes Hx Alcohol Use: Yes Hx Substance Use: Yes - Immunization History Hx Tetanus Toxoid Vaccination: Yes Hx Influenza Vaccination: No Hx Pneumococcal Vaccination: No Review Of Systems Constitutional: Negative for: Fever Gastrointestinal: Negative for: Vomiting Skin: Negative for: Rash Neurological: Negative for: Weakness, Numbness, Headache, Dizziness Physical Exam - Physical Exam Appears: Non-toxic, No Acute Distress Skin: Warm, Dry, No Rash Head: Normacephalic Eye(s): bilateral: PERRL Nose: Normal Oral Mucosa: Moist Lips: Normal Appearing Neck: Normal ROM Chest: Symmetrical Cardiovascular: Rhythm Regular, No Murmur Respiratory: Normal Breath Sounds, No Accessory Muscle Use Extremity: Normal ROM, No Deformity, No Swelling Neurological/Psych: Oriented x3, Normal Speech ED Course And Treatment O2 Sat by Pulse Oximetry: 99 (RA) Pulse Ox Interpretation: Normal Progress Note: No detox beds are available. Patient was given outpatient referral. Pt will be discharged Disposition - Disposition Referrals: [facility] [Outside] Disposition: HOME/ ROUTINE Disposition Time: 14:48 Condition: STABLE Additional Instructions: Call the number for the detox waitiing list. Return if worsened. Instructions: Opioid Use Disorder Forms: [facility] ([place]) - Clinical Impression Clinical Impression: Opioid abuse - Scribe Statement The provider has reviewed the documentation as recorded by the Scribe (Harlan Obando) All medical record entries made by the Scribe were at my direction and personally dictated by me. I have reviewed the chart and agree that the record accurately reflects my personal performance of the history, physical exam, medical decision making, and the department course for this patient. I have also personally directed, reviewed, and agree with the discharge instructions and disposition.
== END 2017-08-18 14:57 | disposition home or self-care (01) ==
LOC: C.ER 14:10
DX: F11.10 Opioid abuse, uncomplicated (principal); Z72.0 Tobacco use

== ENCOUNTER 2017-08-23 21:08 | Inpatient (IN) | payer MEDICAID, OTHER ==
[2017-08-23 21:08] VITALS: BMI 29.7
--- NOTE | 2017-08-23 22:12 | C.PDOC ---
History Of Present Illness 21 year old male presents to the ED for detox for heroin. Patient has been using heroin for the past 3 years mostly snorting it until a month rigo when he started using IV. Patient was prescreened, spoke with crisis who informed him that a bed was available. Patient is cooperative, calm and denies SI/HI, hallucinations, CP, SOB, abdominal pain. Chief Complaint (Nursing): Psychiatric Evaluation History Per: Patient History/Exam Limitations: no limitations Onset/Duration Of Symptoms: Days Current Symptoms Are (Timing): Still Present Suicide/Self Injury Attempted (Context): None Modifying Factor(s): Other (Heroin) Associated Symptoms: denies: Depression, Suicidal Thoughts, Suicidal Plan Recent travel outside of the [place]: No Additional History Per: Patient Past Medical History Reviewed: Historical Data, Nursing Documentation, Vital Signs Vital Signs: Last Vital Signs Temp 98.8 F 08/24/17 00:28 Pulse 77 08/24/17 00:28 Resp 18 08/24/17 00:28 BP 120/72 08/24/17 00:28 Pulse Ox 100 08/24/17 00:28 - Medical History PMH: Asthma Denies: Depression, Diabetes, Hepatitis, HIV, HTN, Chronic Kidney Disease, Seizures, Sexually Transmitted Disease Surgical History: No Surg Hx - [facility] Procedures DETOXIFICATION SERVICES FOR SUBSTANCE ABUSE TREATMENT (01/01/17) INDIVIDUAL PSYCHOTHERAPY, SUPPORTIVE (01/01/17) INJECT ANTIBIOTIC (06/17/13) INJECT/INFUSE NEC (07/01/14) NEBULIZER THERAPY (03/02/07) PSYCHIA INTERV/EVAL NEC (07/01/14) SUTURE OF LIP LACERATION (11/26/13) TETANUS TOXOID ADMINIST (07/16/12) VENOUS PUNCTURE NEC (07/01/14) Family History: States: Unknown Family Hx - Social History Hx Tobacco Use: Yes Hx Alcohol Use: Yes Hx Substance Use: Yes (HERION IV AND COCIANE) - Immunization History Hx Tetanus Toxoid Vaccination: Yes Hx Influenza Vaccination: No Hx Pneumococcal Vaccination: No Review Of Systems Constitutional: Negative for: Fever, Sweats Cardiovascular: Negative for: Chest Pain Respiratory: Negative for: Shortness of Breath Gastrointestinal: Negative for: Abdominal Pain Skin: Negative for: Rash Psych: Negative for: Depression, Suicidal ideation Physical Exam - Physical Exam Appears: Non-toxic, No Acute Distress Skin: Normal Color, Warm, Dry, Other (B/L upper arms track estrada of IV drug use) Head: Atraumatic, Normacephalic Eye(s): bilateral: Normal Inspection Nose: No Discharge Oral Mucosa: Moist Neck: Normal ROM, Supple Chest: Symmetrical Cardiovascular: Rhythm Regular, No Murmur Respiratory: No Rales, No Rhonchi, Wheezing (expiratory) Gastrointestinal/Abdominal: Soft, No Tenderness, No Guarding, No Rebound Extremity: Normal ROM, No Tenderness, No Swelling Neurological/Psych: Oriented x3 Gait: Steady ED Course And Treatment - Laboratory Results Result Diagrams: 08/23/17 22:21 08/23/17 22:21 O2 Sat by Pulse Oximetry: 100 (ON RA) Pulse Ox Interpretation: Normal Medical Decision Making Medical Decision Making: Impression: detox Plan: * Labs * Ua * Crisis Patient will be admitted to detox Disposition - Disposition Disposition: HOSPITALIZED Disposition Time: 05:32 Condition: FAIR - Clinical Impression Clinical Impression: Opioid use disorder, severe, dependence - Scribe Statement The provider has reviewed the documentation as recorded by the Scribraji Delgadillo All medical record entries made by the Scribe were at my direction and personally dictated by me. I have reviewed the chart and agree that the record accurately reflects my personal performance of the history, physical exam, medical decision making, and the department course for this patient. I have also personally directed, reviewed, and agree with the discharge instructions and disposition.
[2017-08-23 22:24] LABS: BASO # 0.1 K/uL (0.0-0.2); BASO % 1.4 % (0.0-2.0); EOS # 0.2 K/uL (0.0-0.7); EOS % 3.7 % (0.0-4.0); HEMOGLOBIN 12.8 g/dL (12.0-18.0); LYMPH # 1.8 K/uL (1.0-4.3); LYMPH % 33.7 % (20.0-40.0); MEAN CELL VOLUME 87.7 fL (80.0-94.0); MEAN CORPUSCULAR HGB CONC 34.2 g/dL (33.0-37.0); MEAN PLATELET VOLUME 6.5 fL (7.2-11.7); MONO # 0.3 K/uL (0.0-0.8); MONO % 5.7 % (0.0-10.0); NEUT % 55.5 % (50.0-75.0); RBC 4.27 Mil/uL (4.40-5.90); WHITE BLOOD COUNT 5.3 K/uL (4.8-10.8)
[2017-08-23 22:28] LABS: URINE AMORPHOUS SEDIMENT MANY /ul (<OCC); URINE BILIRUBIN NEGATIVE (NEGATIVE); URINE BLOOD 1+ (NEGATIVE); URINE CLARITY Hazy (Clear); URINE COLOR Yellow (YELLOW); URINE GLUCOSE (UA) NORMAL (Normal); URINE LEUKOCYTE ESTERASE NEG Leu/uL (Negative); URINE PROTEIN NEGATIVE (NEGATIVE); URINE UROBILINOGEN NORMAL mg/dL (0.2-1.0)
[2017-08-23 22:36] LABS: ALB/GLOB RATIO 1.2 (1.0-2.1); ALBUMIN 4.1 g/dL (3.5-5.0); ALT/SGPT 220 U/L (21-72); AST/SGOT 157 U/L (17-59); BLOOD UREA NITROGEN 12 mg/dL (9-20); CALCIUM 8.9 mg/dl (8.6-10.4); GFR AFRICAN-AMERICAN > 60; GFR NON-AFRICAN AMERICAN > 60
[2017-08-23 22:40] LABS: BARBITURATES, UR NEGATIVE (NEGATIVE); BENZODIAZEPINES, UR NEGATIVE (NEGATIVE); PHENCYCLIDINE, UR NEGATIVE (NEGATIVE)
[2017-08-23 22:42] LABS: OPIATES, UR POSITIVE (NEGATIVE)
--- NOTE | 2017-08-24 00:04 | PCM.BM ---
<Татьяна Herring M - Last Filed: 08/24/17 00:03> Treatment Plan Problems - Problems identified on initial assessmt Ineffective Coping Skills Date Initiated: 08/24/17 Time Initiated: 00:03 Assessment reference: NA Status: Active Treatment assets and liabiliti Patient Assests: cooperative, ADL independent, physically healthy Patient Liabilities: financial problems, poor support system, substance abuse, other - Milieu Protocol Maintain good personal hygiene: daily Encourage regular showers, daily Remind patient to perform daily oral care, other Assist patient to perform ADL's Maintain personal safety: every shift Educate patient to report safety concerns to staff, every shift Monitor environment for contraband/sharps Medication safety: Monitor for expected outcome, potential side effects: every shift, Assess barriers to learning: every shift, Assess readiness for medication education: every shift <Lyly Qureshi - Last Filed: 08/24/17 14:09> Family Contact Family involvement: Family/SO is involved Family contact: Patient agrees to contact, Telephone contact initiated by staff Family contact name: Pt's Dad Family contacted how many times per week?: 2 - Goals for Treatment Patient goals for treatment: Complete detox and attend rehab in [place]. Discharge/Continuing Care - Education Needs Education Needs: Family Medication, Family Diagnosis/Disease Process, Family Coping Skills, Patient Medication, Patient Diagnosis/Disease Process, Patient Coping Skills, Patient Anger Management skills, Patient Placement options, Patient Community resources - Discharge Discharge Criteria: No longer exhibiting s/s of withdrawal, Reduction of target symptoms Discharge to:: Substance Abuse Rehab - Treatment Team Participation Patient/Family/SO Statement: 08/24/17 14:10 "My Dad already got me into a rehab in [place]." Discussed with Family/SO: No Was Patient/Family/SO present at Treatment Team Meeting: Yes <Endy Pederson - Last Filed: 08/25/17 12:57> - Diagnosis (1) Opioid use disorder, severe, dependence Status: Acute Interventions: 08/25/17 12:57 * Assess 7x/week regarding severity of withdrawal * Educate regarding risks, benefits, side effects and alternatives of medications * Use Motivational Interviewing for abstinence * Use CBT for relapse prevention * Medication management for withdrawal symptoms * Encourage medication assisted treatment *
[2017-08-24] MEDS ORDERED: Albuterol HFA 90 mcg/actuation (8 g) INH PRN (00:51)
[2017-08-24] MEDS ORDERED: Buprenorphine Hydrochloride 2 mg SL ONE ×2 (13:16→14:17)
--- NOTE | 2017-08-24 14:01 | PCM.PSYCH ---
Initial Psychiatric Evaluation - Initial Psychiatric Evaluation Type of Admission: Voluntary Legal Status: Capacity Chief Complaint (in patient's own words): "I relapsed" History of Present Illness and Precipitating Events: The patient is seen, chart reviewed and case discussed. He is known from previous admissions. This is a 21-year-old -Kaz[place] male, single with 2 children age 24 who are with their mother's right now. The patient lives with his father, sister ( 14 y/o) and brother (8 y/o). The was in detox here but they are now - she is with his child. The patient is going on and off jobs. He left AMA last time and relapsed "right away." He is using 15 bags IV heroin and some IV cocaine. He started 3 years ago. He has been also using crack cocaine during the same time, and smoking marijuana but not every day. He smokes 5 cigarettes a day. He denies alcohol and other drugs. He has been to detox 4 times but never to rehabilitation. He now wants rehab. He denies psych symptoms. Past psych history: Denies Family psych history: Mother used heroin. Medical history: Asthma and hepatitis C Current Medications: Active Medications Generic Name Dose Route Start Last Admin Trade Name Freq PRN Reason Stop Dose Admin Albuterol 1 puff 08/24/17 00:51 08/24/17 00:58 Ventolin Hfa 90 Mcg/Actuation (8 G) INH 1 puff RQ6 PRN Administration Shortness of Breath Buprenorphine HCl 6 mg 08/24/17 14:17 Subutex SL 08/24/17 14:18 ONCE ONE Clonidine HCl 0.1 mg 08/24/17 00:07 Catapres PO Q8H PRN Withdrawal Symptoms Hydroxyzine HCl 25 mg 08/24/17 00:06 Atarax PO Q6H PRN Anxiety Ondansetron HCl 4 mg 08/24/17 00:07 Zofran Odt PO Q8H PRN Nausea/Vomiting Trazodone HCl 50 mg 08/24/17 00:06 Desyrel PO HS PRN Insomnia Past Psychiatric History - Past Psychiatric History Previous Treatment History: None Pertinent Medical Hx (Current Medical&Sleep Prob, Allergies): Allergies Allergy/AdvReac Type Severity Reaction Status Date / Time lemon Allergy RASH Verified 08/23/17 21:23 peanut Allergy RASH Verified 08/23/17 21:23 Albuterol HFA [Ventolin HFA 90 mcg/actuation (8 g)] 1 puff INH RQ4 PRN #0 inhaler 01/02/16 Albuterol HFA [Ventolin HFA 90 mcg/actuation (8 g)] 1 puff INH RQ6 PRN #1 inhaler 01/04/17 hydrOXYzine HCl [Atarax] 50 mg PO BID PRN #60 tab 01/04/17 traZODone [Desyrel] 50 mg PO HS PRN #30 tab 01/04/17 Review of Systems - Neurological Neurological: UNREMARKABLE - Psychiatric Psychiatric: Abnormal Sleep Pattern, Anxiety, Difficulty Concentrating, Irritability. absent: Hallucinations, Homicidal Ideation, Hopelessness, Suicidal Ideation Mental Status Examination - Personal Presentation Personal Presentation: Looks stated age - Affect Affect: Constricted - Motor Activity Motor Activity: Calm - Reliability in Providing Information Reliability in Providing Information: Fair - Speech Speech: Organized - Mood Mood: Anxious - Formal Thought Process Formal Thought Process: No Impairment - Cognitive Functions Orientation: Person, Place, Situation, Time Sensorium: Alert Attention/Concentration: Attentive Estimate of Intelligence: Average Judgement: Intact, as evidence by: Insight regarding need for hospitalization Memory: Recent intact, as evidence by: Ability to recall events of the day, Remote intact, as evidenced by: Abilit to recall sig. life events - Risk Risk: Withdrawal, Diminished functioning - Strength & Assets Inventory Strength & Assets Inventory: Family support, Cooperative - Limitations Limitations: Other DSM 5 DX - DSM 5 DSM 5 Diagnosis: Opioid withdrawal Opioid use - severe cocaine use d/o - severe cannabis use d/o - moderate - Recommended/Plan of Treatment Treatment Recommendations and Plan of Treatment: Detox with subutex Gabapentin for augmentation if needed As needed medications All risks, benefits and alternatives of the meds discussed, and the pt agreed and understood. Attend groups and activities Supportive therapy and psychoeducation [place] for abstinence CBT for relapse prevention Encourage MAT Refer to rehab or IOP, and self-help groups Smoking cessation with [place] Nicotine patch if needed 34 min Projected ELOS: 4-5 days Prognosis: fair w/o MAT - Smoking Cessation Smoking Cessation Initiated: Yes
[2017-08-25] MEDS: Buprenorphine Hydrochloride 2 mg SL SCH (10:18)
--- NOTE | 2017-08-25 12:57 | PCM.PYCHPN ---
Psychiatric Progress Note - Psychiatric Progress Note Patient seen today, length of contact: 16 min Patient Chief Complaint: "I could not sleep, restless leg" Problems Identified/Issues Discussed: The pt is seen, chart reviewed, case discussed with staff. The pt is compliant with medications and reports no side-effects. Symptoms are improving but needs more time to stabilize. After care discussed, support and psychoeducation given. He is quiet and a little isolated, sad-looking denies SI though Awaiting acceptance to a [place] rehab that his father had found Medication Change: Yes (detox changes daily) Medical Record Reviewed: Yes Mental Status Examination - Cognitive Function Orientation: Person, Place, Situation, Time Memory: Intact Attention: Poor Concentration: Poor Association: WNL Fund of Knowledge: Poor - Mood Mood: Anxious - Affect Affect: Constricted - Speech Speech: Appropriate - Formal Thought Process Formal Thought Process: No Impairment - Suicidal Ideation Suicidal Ideation: No - Homicidal Ideation Homicidal Ideation: No Goal/Treatment Plan - Goal/Treatment Plan Need for Continued Stay: Discharge may exacerbated symptoms, Severe functional impairment Progress Toward Problem(s) and Goals/Treatment Plan: Detox with subutex Gabapentin for augmentation if needed As needed medications All risks, benefits and alternatives of the meds discussed, and the pt agreed and understood. Attend groups and activities Supportive therapy and psychoeducation [place] for abstinence CBT for relapse prevention Encourage MAT Refer to rehab or IOP, and self-help groups Smoking cessation with [place] Nicotine patch if needed
[2017-08-26] MEDS: Buprenorphine Hydrochloride 2 mg SL SCH (09:43)
[2017-08-26 11:16] VITALS: RESP 20
[2017-08-26] MEDS: Aluminum Hydroxide/Magnesium Hydroxide Susp (30 mL) PO PRN ×2 (11:59→17:02)
--- NOTE | 2017-08-26 12:36 | PCM.PYCHPN ---
Psychiatric Progress Note - Psychiatric Progress Note Patient seen today, length of contact: 16 min Patient Chief Complaint: "I need to leave Tuesday" Problems Identified/Issues Discussed: The pt is seen, chart reviewed, case discussed with staff. Support given, CBT and [place] used briefly No new symptoms reported, improving slowly and needs more time No SEs from medications, risks discussed. After care discussed - he is accepted by [facility] in [place] - to start on 09/01 though Medication Change: Yes (detox changes daily) Medical Record Reviewed: Yes Mental Status Examination - Cognitive Function Orientation: Person, Place, Situation, Time Memory: Intact Attention: Poor Concentration: Poor Association: WNL Fund of Knowledge: Poor - Mood Mood: Anxious - Affect Affect: Constricted - Speech Speech: Appropriate - Formal Thought Process Formal Thought Process: No Impairment - Suicidal Ideation Suicidal Ideation: No - Homicidal Ideation Homicidal Ideation: No Goal/Treatment Plan - Goal/Treatment Plan Need for Continued Stay: Discharge may exacerbated symptoms, Severe functional impairment Progress Toward Problem(s) and Goals/Treatment Plan: Detox with subutex Gabapentin for augmentation if needed As needed medications All risks, benefits and alternatives of the meds discussed, and the pt agreed and understood. Attend groups and activities Supportive therapy and psychoeducation [place] for abstinence CBT for relapse prevention Encourage MAT Refer to rehab or IOP, and self-help groups Smoking cessation with [place] Nicotine patch if needed
[2017-08-27 08:56] VITALS: BP 105/73; PULSE 69; TEMP 97.8; O2SAT 100
[2017-08-27] MEDS: Buprenorphine Hydrochloride 2 mg SL SCH (09:25)
--- NOTE | 2017-08-27 10:21 | PCM.PYCHDC ---
Mental Status Examination - Mental Status Examination Orientation: Person, Place, Situation, Time Memory: Intact Mood: Anxious Affect: Constricted Speech: Appropriate Attention: WNL Concentration: Poor Association: WNL Fund of Knowledge: Poor Formal Thought Process: No Impairment Suicidal Ideation: No Current Homicidal Ideation?: No Discharge Summary - Discharge Note Reason for Hospitalization: Heroin detox Consultations:: List each consultation separately and include: 1. Reason for request. 2. Findings. 3. Follow-up Summary of Hospital Course include:: 1. Description of specific treatment plan utilized for patients during their course of treatmen. 2. Summarize the time- course for resolution of acute symptoms and/or regressed behaviors. 3. Describe issues identified and worked on during hospitalization. 4. Describe medication utilized. 5. Describe medical problems identified and treated. 6. Reassessment of suicide risk Summary of Hospital Course: The patient is seen, chart reviewed and case discussed. On admission: He is known from previous admissions. This is a 21-year-old -[place]er male, single with 2 children age 24 who are with their mother's right now. The patient lives with his father, sister ( 14 y/o) and brother (8 y/o). The was in detox here but they are now - she is with his child. The patient is going on and off jobs. He left AMA last time and relapsed "right away." He is using 15 bags IV heroin and some IV cocaine. He started 3 years ago. He has been also using crack cocaine during the same time, and smoking marijuana but not every day. He smokes 5 cigarettes a day. He denies alcohol and other drugs. He has been to detox 4 times but never to rehabilitation. He now wants rehab. He denies psych symptoms. Past psych history: Denies Family psych history: Mother used heroin. Medical history: Asthma and hepatitis C Hospital course: The pt was admitted and started on treatment with psychotherapy, support, psychoeducation and medications. [place] and CBT used. The pt attended groups and activities, as well as milieu therapy. All the risks and benefits of medications are discussed and the patient understood and agreed. The pt improved with the treatments provided. After care discussed with the patient. He left 1-2 days early but did complete 8 to 2 mg detox protocol. His father is contacted with his permission, and we had a conference call today and he was very upset and loud that Nitin was not leaving on Tuesday. He refused to pick him up. Risks of leaving early discussed. He says he is "bored" and that he would be OK "this time" - i.e. will go to a meeting today, keep his rehab apt on [facility] etc. On 09/[address] [facility] for rehab. - Final Diagnosis (DSM 5) Condition upon Discharge: IMPROVED DSM 5: Opioid withdrawal Opioid use - severe cocaine use d/o - severe cannabis use d/o - moderate Personality d/o - unspecified Disposition: HOME/ ROUTINE Follow-up Treatment Plan: Continue below medications after discharge. Follow after care plan as discussed. Use relapse prevention skills Return to ER or call 911 if suicidal, homicidal or symptoms relapse. Stay away from stress, alcohol and drugs. See primary doctor regularly and get labs. Prescriptions/Medication Reconciliation: Mirtazapine [Remeron] 15 mg PO HS #30 tab QUEtiapine [Seroquel] 100 mg PO HS #30 tab - Smoking Cessation Smoking Cessation Medication prescribed: No - Antipsychotic Medications Pt discharged on 2 or more routine antipsychotic medications: No
== END 2017-08-27 10:45 | disposition home or self-care (01) | DRG 895 ==
LOC: C.ER 21:08 → SUPCPDRO 21:08 → C.7D 23:53
PROVIDERS: ADMIT Psychiatry & Neurology Psychiatry; ATTEND Psychiatry & Neurology Psychiatry
PROC: HZ2ZZZZ Detoxification Services for Substance Abuse Treatment (ICD-10-PCS; principal; 2017-08-23)
PROC: HZ59ZZZ Individual Psychotherapy for Substance Abuse Treatment, Supportive (ICD-10-PCS; 2017-08-23)
PROC: HZ46ZZZ Group Counseling for Substance Abuse Treatment, Psychoeducation (ICD-10-PCS; 2017-08-23)
PROC: HZ90ZZZ Pharmacotherapy for Substance Abuse Treatment, Nicotine Replacement (ICD-10-PCS; 2017-08-23)
DX: F11.23 Opioid dependence with withdrawal (principal); F12.90 Cannabis use, unspecified, uncomplicated; F14.90 Cocaine use, unspecified, uncomplicated; F17.210 Nicotine dependence, cigarettes, uncomplicated; J45.909 Unspecified asthma, uncomplicated; F60.9 Personality disorder, unspecified

== ENCOUNTER 2017-11-03 17:12 | Emergency (ER) | payer OTHER, MEDICAID ==
[2017-11-03 17:12] VITALS: BMI 29.7
[2017-11-03 17:31] VITALS: RESP 20; O2SAT 100
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
[2017-11-03 18:59] VITALS: BP 128/88; PULSE 60; TEMP 98.6
== END 2017-11-03 19:00 | disposition home or self-care (01) ==
LOC: C.ER 17:12
DX: T74.21XA Adult sexual abuse, confirmed, initial encounter (principal); Y07.59 Other non-family member, perpetrator of maltreatment and neglect

== ENCOUNTER 2018-02-01 02:34 | Inpatient (IN) | payer MEDICAID, OTHER ==
[2018-02-01 02:35] VITALS: BMI 23.8
[2018-02-01 03:23] LABS: BASO # 0.1 K/uL (0.0-0.2); BASO % 1.1 % (0.0-2.0); EOS # 0.2 K/uL (0.0-0.7); HEMOGLOBIN 12.3 g/dL (12.0-18.0); LYMPH # 1.8 K/uL (1.0-4.3); MEAN CELL VOLUME 89.1 fL (80.0-94.0); MEAN CORPUSCULAR HEMOGLOBIN 30.2 pg (27.0-31.0); MEAN CORPUSCULAR HGB CONC 33.9 g/dL (33.0-37.0); MEAN PLATELET VOLUME 6.3 fL (7.2-11.7); MONO # 0.7 K/uL (0.0-0.8); MONO % 12.5 % (0.0-10.0); NEUT # 2.9 K/uL (1.8-7.0); NEUT % 51.4 % (50.0-75.0); RBC 4.05 Mil/uL (4.40-5.90); RED CELL DISTRIBUTION WIDTH 14.7 % (11.5-14.5); WHITE BLOOD COUNT 5.7 K/uL (4.8-10.8)
[2018-02-01 03:30] LABS: RENAL EPITHELIAL < 1 /hpf (0-3); SQUAMOUS EPITHIAL < 1 /hpf (0-5); URINE BILIRUBIN NEGATIVE (NEGATIVE); URINE BLOOD 3+ (NEGATIVE); URINE CALCIUM OXALATE CRYSTALS RARE /hpf (<OCC); URINE CLARITY Hazy (Clear); URINE COLOR Yellow (YELLOW); URINE GLUCOSE (UA) NORMAL (Normal); URINE LEUKOCYTE ESTERASE NEG Leu/uL (Negative); URINE PROTEIN 2+ mg/dL (NEGATIVE); URINE UROBILINOGEN NORMAL mg/dL (0.2-1.0)
[2018-02-01 03:33] LABS: ALB/GLOB RATIO 1.4 (1.0-2.1); ALBUMIN 4.1 g/dL (3.5-5.0); ALT/SGPT 72 U/L (21-72); AST/SGOT 55 U/L (17-59); BLOOD UREA NITROGEN 17 mg/dL (9-20); CALCIUM 9.4 mg/dl (8.6-10.4); GFR NON-AFRICAN AMERICAN > 60
[2018-02-01 03:39] LABS: BARBITURATES, UR NEGATIVE (NEGATIVE); BENZODIAZEPINES, UR NEGATIVE (NEGATIVE); PHENCYCLIDINE, UR NEGATIVE (NEGATIVE)
[2018-02-01 03:46] LABS: OPIATES, UR POSITIVE (NEGATIVE)
--- NOTE | 2018-02-01 05:36 | C.PDOC ---
History Of Present Illness 22 year old male presents to the ER requesting detox from heroin and cocaine. Patient states he takes 25-30 bags of heroin IV a day. Patient has not physical complaints at this time, however, upon further questioning patient states his urine has been slightly darker than normal. Time Seen by Provider: 02/01/18 02:47 Chief Complaint (Nursing): Substance Abuse History Per: Patient History/Exam Limitations: no limitations Onset/Duration Of Symptoms: Days Current Symptoms Are (Timing): Still Present Suicide/Self Injury Attempted (Context): None Modifying Factor(s): Cocaine, Other (Heroin) Associated Symptoms: denies: Depression, Suicidal Thoughts Involuntary Hold By: None Recent travel outside of the [place]: No Past Medical History Reviewed: Historical Data, Nursing Documentation, Vital Signs Vital Signs: Last Vital Signs Temp 97.8 F 02/01/18 02:40 Pulse 97 H 02/01/18 02:40 Resp 18 02/01/18 02:40 BP 146/78 02/01/18 02:40 Pulse Ox 100 02/01/18 02:40 - Medical History PMH: Asthma, Bronchitis Denies: Depression, Diabetes, Hepatitis, HIV, HTN, Chronic Kidney Disease, Seizures, Sexually Transmitted Disease - [facility] Procedures DETOXIFICATION SERVICES FOR SUBSTANCE ABUSE TREATMENT (08/23/17) GROUP SHELL FISHERMAN FOR SUBSTANCE ABUSE TREATMENT, PSYCHOEDUCATION (08/23/17) INDIV PSYCHOTHERAPY FOR SUBSTANCE ABUSE TREATMENT, SUPPORT (08/23/17) INDIVIDUAL PSYCHOTHERAPY, SUPPORTIVE (01/01/17) INJECT ANTIBIOTIC (06/17/13) INJECT/INFUSE NEC (07/01/14) MEDICATION MANAGEMENT (11/11/17) NEBULIZER THERAPY (03/02/07) PHARMACOTHERAPY FOR SUBSTANCE ABUSE, NICOTINE REPLACE (08/23/17) PSYCHIA INTERV/EVAL NEC (07/01/14) SUTURE OF LIP LACERATION (11/26/13) TETANUS TOXOID ADMINIST (07/16/12) VENOUS PUNCTURE NEC (07/01/14) Family History: States: Unknown Family Hx - Social History Hx Tobacco Use: Yes Hx Alcohol Use: Yes Hx Substance Use: Yes - Immunization History Hx Tetanus Toxoid Vaccination: Yes Hx Influenza Vaccination: No Hx Pneumococcal Vaccination: No Review Of Systems Constitutional: Negative for: Fever, Chills Cardiovascular: Negative for: Chest Pain, Palpitations Respiratory: Negative for: Cough, Shortness of Breath Gastrointestinal: Negative for: Nausea, Vomiting Genitourinary: Positive for: Other (Dark urine) Skin: Negative for: Rash Neurological: Negative for: Weakness, Numbness Physical Exam - Physical Exam Appears: Non-toxic Skin: Normal Color, Warm, Dry Head: Atraumatic, Normacephalic Eye(s): bilateral: Normal Inspection Oral Mucosa: Moist Chest: Symmetrical, No Tenderness Cardiovascular: Rhythm Regular Respiratory: Normal Breath Sounds, No Rales, No Rhonchi, No Wheezing Gastrointestinal/Abdominal: Soft, No Tenderness Back: CVA Tenderness (Mild bilateral) Extremity: Normal ROM (x4) Neurological/Psych: Oriented x3, Normal Speech ED Course And Treatment - Laboratory Results Result Diagrams: 02/01/18 03:19 02/01/18 03:19 O2 Sat by Pulse Oximetry: 100 (room air) Pulse Ox Interpretation: Normal Progress Note: CT abd/pel, blood work, and urinalysis ordered. Patient medically cleared for admission. Disposition - Disposition Disposition: HOSPITALIZED Disposition Time: 05:00 Condition: STABLE - Clinical Impression Clinical Impression: Drug dependence - Scribe Statement The provider has reviewed the documentation as recorded by the Scribe Shahab Stover All medical record entries made by the Scribe were at my direction and personally dictated by me. I have reviewed the chart and agree that the record accurately reflects my personal performance of the history, physical exam, medical decision making, and the department course for this patient. I have also personally directed, reviewed, and agree with the discharge instructions and disposition.
--- NOTE | 2018-02-01 05:57 | PCM.BM ---
<Sukhdeep Herringmerna Haynes - Last Filed: 02/01/18 05:56> Treatment Plan Problems - Problems identified on initial assessmt Ineffective Coping Skills Date Initiated: 02/01/18 Time Initiated: 05:57 Assessment reference: NA Status: Active Treatment assets and liabiliti Patient Assests: cooperative, resourceful, ADL independent, good support system, cognitively intact, good interpersonal skills Patient Liabilities: live alone, financial problems, poor support system, relationship conflicts, substance abuse, medical problems, legal issue - Milieu Protocol Maintain good personal hygiene: daily Encourage regular showers, daily Remind patient to perform daily oral care, daily Assist patient to perform ADL's Maintain personal safety: every shift Educate patient to report safety concerns to staff, every shift Monitor environment for contraband/sharps Medication safety: Monitor for expected outcome, potential side effects: every shift, Assess barriers to learning: every shift, Assess readiness for medication education: every shift <Endy Pederson - Last Filed: 02/01/18 21:54> - Diagnosis (1) Opioid use disorder, severe, dependence Status: Acute Interventions: 02/01/18 22:21 * Assess 7x/week regarding severity of withdrawal * Educate regarding risks, benefits, side effects and alternatives of medications * Use Motivational Interviewing for abstinence * Use CBT for relapse prevention * Medication management for withdrawal symptoms * Encourage medication assisted treatment * <Lyly Qureshi - Last Filed: 02/02/18 09:46> Family Contact Family involvement: Famliy/SO not involved - Goals for Treatment Patient goals for treatment: Complete detox and discuss aftercare options with counseling staff. Discharge/Continuing Care - Education Needs Education Needs: Patient Medication, Patient Diagnosis/Disease Process, Patient Coping Skills, Patient Anger Management skills, Patient Placement options, Patient Community resources, Significant Other Medication, Significant Other Diagnosis/Disease Process, Significant Other Coping Skills, Significant Other Placement options, Significant Other Community resources - Discharge Discharge Criteria: Ability to care for self, No longer exhibiting s/s of withdrawal, Reduction of target symptoms Discharge to:: Other - Additional Comments 02/02/18 09:45 Aftercare TBD as pt. is unmotivated to discuss at this time. - Treatment Team Participation Patient/Family/SO Statement: 02/02/18 09:46 "I don't really know what I wanna do...I don't really wanna do anything..." Discussed with Family/SO: No Was Patient/Family/SO present at Treatment Team Meeting: Yes
--- NOTE | 2018-02-01 08:17 | CT ---
PROCEDURE: CT Abdomen and Pelvis without Oral or IV contrast. HISTORY: CVA tenderness with hematuria COMPARISON: None available. TECHNIQUE: Contiguous axial images of the abdomen and pelvis. No oral or IV contrast administered. Coronal and Sagittal reformats generated. Radiation dose: Total exam DLP = 238.41 mGy-cm. This CT exam was performed using one or more of the following dose reduction techniques: Automated exposure control, adjustment of the mA and/or kV according to patient size, and/or use of iterative reconstruction technique. FINDINGS: There is limited evaluation of the solid organs without the administration of IV contrast. Examination markedly limited due to emaciated state of patient and paucity of intra-abdominal and intrapelvic fat. LOWER THORAX: No visible consolidation, pleural effusion, or pneumothorax. LIVER: Unremarkable unenhanced appearance. GALLBLADDER AND BILE DUCTS: Contracted state of gallbladder limits evaluation. PANCREAS: Unremarkable unenhanced appearance. SPLEEN: Unremarkable unenhanced appearance. ADRENALS: Not well-visualized. Grossly unremarkable unenhanced appearance. KIDNEYS AND URETERS: No hydronephrosis or obstructing renal calculus. BLADDER: The urinary bladder appears unremarkable. REPRODUCTIVE: Unremarkable APPENDIX: No secondary signs of acute appendicitis. BOWEL: Ingested debris noted within the stomach which is incompletely distended. Lack of oral contrast limits evaluation for bowel pathology. The bowel loops appear within normal limits of caliber without evidence of intestinal obstruction. PERITONEUM: No significant free fluid. No definite free air. LYMPH NODES: No bulky lymphadenopathy identified. VASCULATURE: No aortic aneurysm. BONES: No acute osseous abnormality is detected. OTHER FINDINGS: None. IMPRESSION: Markedly limited study. Moderate constipation. Preliminary impression was provided by [facility]
--- NOTE | 2018-02-01 11:25 | PCM.PSYCH ---
Addendum entered and electronically signed by Endy Pederson MD 02/01/18 22:24: I attest that I have interviewed the pt and reviewed the chart and participated and agree with the following assessment and plan. Additional dx: Personality d/o Original Note: Initial Psychiatric Evaluation - Initial Psychiatric Evaluation Type of Admission: Voluntary Legal Status: Capacity Chief Complaint (in patient's own words): "I relapsed." History of Present Illness and Precipitating Events: The patient is seen, chart reviewed and case discussed. He is known from previous admissions. Mr. Sosa is a single 22 year old -[place] male with 3 children who are with their mother right now. The patient lives with his father, sister (15yo) and brother (9yo). The was in detox here but they are now . The patient is going on and off jobs. He completed detox last admission, but didn't go to rehab and relapsed "right away." He is using 15 bags IV heroin and some IV cocaine. He started 3 years ago. He has been also using crack cocaine during the same time, and smoking marijuana but not every day. He smokes 1/2 ppd. He denies alcohol and other drugs. He has been to detox 6 times but never to rehabilitation. He now wants rehab. He denies psych symptoms. PMH: asthma, hepC Psych: denies FamHx: Mother - heroin ED: BAL <10, UDS + for opiates, cocaine, THC Past Psychiatric History - Past Psychiatric History Pertinent Medical Hx (Current Medical&Sleep Prob, Allergies): Allergies Allergy/AdvReac Type Severity Reaction Status Date / Time lemon Allergy RASH Verified 11/11/17 22:48 peanut Allergy RASH Verified 11/11/17 22:48 Review of Systems - Psychiatric Psychiatric: Abnormal Sleep Pattern, Anhedonia, Depression, Difficulty Concentrating, Irritability. absent: Hallucinations, Homicidal Ideation, Panic Attacks, Suicidal Ideation, Visual Hallucinations Mental Status Examination - Personal Presentation Personal Presentation: Looks older than stated age - Affect Affect: Blunted, Flat - Motor Activity Motor Activity: Calm - Reliability in Providing Information Reliability in Providing Information: Fair - Speech Speech: Organized - Mood Mood: Depressed, Neutral - Formal Thought Process Formal Thought Process: No Impairment - Cognitive Functions Orientation: Person, Place, Situation, Time Sensorium: Drowsy Attention/Concentration: Attentive Estimate of Intelligence: Below average Judgement: Imparied, as evidence by: Poor judgement, Imparied, as evidence by: Lack of insight into illness Memory: Recent impaired, as evidence by: Inability to recall events of the day, Remote intact, as evidenced by: Abilit to recall sig. life events - Risk Risk: Withdrawal, Diminished functioning DSM 5 DX - DSM 5 DSM 5 Diagnosis: Opioid use disorder - severe Opioid withdrawal Cocaine use disorder - severe Cannabis use disorder - moderate - Recommended/Plan of Treatment Treatment Recommendations and Plan of Treatment: Detox with subutex Gabapentin for augmentation if needed As needed medications All risks, benefits and alternatives of the meds discussed, and the pt agreed and understood. Attend groups and activities Supportive therapy and psychoeducation [place] for abstinence CBT for relapse prevention Encourage MAT Refer to rehab or IOP, and self-help groups Smoking cessation with [place] Nicotine patch if needed 34 min Projected ELOS: 5 days - Smoking Cessation Smoking Cessation Initiated: No
[2018-02-01] MEDS ORDERED: Buprenorphine Hydrochloride 2 mg SL ONE ×2 (14:09→16:00)
[2018-02-01] MEDS: Aluminum Hydroxide/Magnesium Hydroxide Susp (30 mL) PO PRN (23:46)
[2018-02-02] MEDS: Buprenorphine Hydrochloride 2 mg SL SCH (10:42)
[2018-02-02] MEDS: Aluminum Hydroxide/Magnesium Hydroxide Susp (30 mL) PO PRN ×2 (13:59→19:46)
--- NOTE | 2018-02-02 15:22 | PCM.PYCHPN ---
Psychiatric Progress Note - Psychiatric Progress Note Patient seen today, length of contact: 15 min Patient Chief Complaint: I ma still withdrawing.' Problems Identified/Issues Discussed: Patient seen and evaluated, chart reviewed and discussed with the nurse. Supportive therapy and psychoeducation were given. Patient reports some improvement in his mood than yesterday but still reports withdrawal symptoms including, cramps, nausea, anxiety and headaches. Patient reports some anxiety but denies any suicidal ideation or homicidal ideation. He denies any auditory or visual hallucinations. He is tolerating the withdrawal medications and denies any side effects. Medication Change: Yes Medical Record Reviewed: Yes Mental Status Examination - Cognitive Function Orientation: Person, Place, Situation, Time Memory: Intact Attention: WNL Concentration: Poor Association: WNL Fund of Knowledge: Poor - Mood Mood: Depressed, Neutral - Affect Affect: Constricted - Speech Speech: Soft - Formal Thought Process Formal Thought Process: No Impairment - Suicidal Ideation Suicidal Ideation: No - Homicidal Ideation Homicidal Ideation: No Goal/Treatment Plan - Goal/Treatment Plan Need for Continued Stay: Severe depression anxiety, Severe functional impairment Progress Toward Problem(s) and Goals/Treatment Plan: Opioid use disorder - severe Opioid withdrawal Cocaine use disorder - severe Cannabis use disorder - moderate Detox with subutex Gabapentin for augmentation if needed As needed medications All risks, benefits and alternatives of the meds discussed, and the pt agreed and understood. Attend groups and activities Supportive therapy and psychoeducation [place] for abstinence CBT for relapse prevention Encourage MAT Refer to rehab or IOP, and self-help groups Smoking cessation with [place] Nicotine patch if needed
[2018-02-02] MEDS ORDERED: Buprenorphine Hydrochloride 2 mg SL ONE (16:25)
[2018-02-03] MEDS: Buprenorphine Hydrochloride 2 mg SL SCH (09:23)
[2018-02-03 13:36] VITALS: RESP 18
--- NOTE | 2018-02-03 13:46 | PCM.PYCHPN ---
Psychiatric Progress Note - Psychiatric Progress Note Patient seen today, length of contact: 15 min Patient Chief Complaint: "I feel a little better" Problems Identified/Issues Discussed: The pt is seen, chart reviewed, case discussed with staff. The pt is compliant with medications and reports no side-effects. Symptoms are improving but needs more time to stabilize. Pt attends groups and activities. Support given, psycho-education provided. After care discussed. He now agreed with going to rehab - supported. Medication Change: Yes (detox changes daily) Medical Record Reviewed: Yes Mental Status Examination - Cognitive Function Orientation: Person, Place, Situation, Time Memory: Intact Attention: WNL Concentration: Poor Association: WNL Fund of Knowledge: Poor - Mood Mood: Depressed, Neutral - Affect Affect: Constricted - Speech Speech: Soft - Formal Thought Process Formal Thought Process: No Impairment - Suicidal Ideation Suicidal Ideation: No - Homicidal Ideation Homicidal Ideation: No Goal/Treatment Plan - Goal/Treatment Plan Need for Continued Stay: Severe depression anxiety, Severe functional impairment Progress Toward Problem(s) and Goals/Treatment Plan: Continue medications Support and psychoeducation daily Attend groups and activities daily After care planning by counselors [place] and CBT Remeron for sleep and low mood Risks discussed - he understood Estimated Date of D/C: 02/06/18
[2018-02-04] MEDS: Buprenorphine Hydrochloride 2 mg SL SCH (09:25)
--- NOTE | 2018-02-04 11:16 | PCM.PYCHPN ---
Psychiatric Progress Note - Psychiatric Progress Note Patient seen today, length of contact: 15 min Patient Chief Complaint: I ma still withdrawing.' Problems Identified/Issues Discussed: Patient seen and evaluated, chart reviewed and discussed with the nurse. Supportive therapy and psychoeducation were given. Patient reports some improvement in his mood than yesterday but still reports withdrawal symptoms including, cramps, nausea, anxiety and headaches. Patient reports some anxiety but denies any suicidal ideation or homicidal ideation. He denies any auditory or visual hallucinations. He is tolerating the withdrawal medications and denies any side effects. Medication Change: Yes (detox changes daily) Medical Record Reviewed: Yes Mental Status Examination - Cognitive Function Orientation: Person, Place, Situation, Time Memory: Intact Attention: WNL Concentration: Poor Association: WNL Fund of Knowledge: Poor - Mood Mood: Depressed, Neutral - Affect Affect: Constricted - Speech Speech: Soft - Formal Thought Process Formal Thought Process: No Impairment - Suicidal Ideation Suicidal Ideation: No - Homicidal Ideation Homicidal Ideation: No Goal/Treatment Plan - Goal/Treatment Plan Need for Continued Stay: Severe depression anxiety, Severe functional impairment Progress Toward Problem(s) and Goals/Treatment Plan: Opioid use disorder - severe Opioid withdrawal Cocaine use disorder - severe Cannabis use disorder - moderate Detox with subutex Gabapentin for augmentation if needed As needed medications All risks, benefits and alternatives of the meds discussed, and the pt agreed and understood. Attend groups and activities Supportive therapy and psychoeducation [place] for abstinence CBT for relapse prevention Encourage MAT Refer to rehab or IOP, and self-help groups Smoking cessation with [place] Nicotine patch if needed Estimated Date of D/C: 02/06/18
[2018-02-04 16:07] VITALS: BP 110/74; PULSE 73; TEMP 98.5; O2SAT 95
--- NOTE | 2018-02-04 17:21 | CP.PCM.PCO ---
Physician Communication Note - Physician Communication Note Physician Communication Note: This pt SHOULD be referred to MAT next time. Two AMAs back to back.
--- NOTE | 2018-02-06 00:38 | PCM.PYCHDC ---
Mental Status Examination - Mental Status Examination Orientation: Person, Place, Situation, Time Memory: Intact Mood: Neutral Affect: Constricted Speech: Soft Attention: WNL Concentration: WNL Association: WNL Fund of Knowledge: WNL Formal Thought Process: No Impairment Description of patient's judgement and insight: partially impaired Psychotic Thoughts and Behaviors: denies any AVH Suicidal Ideation: No Current Homicidal Ideation?: No Discharge Summary - Discharge Note Reason for Hospitalization: Mr. Sosa is a single 22 year old -[place] male with 3 children who are with their mother right now. The patient lives with his father, sister (15yo) and brother (9yo). The was in detox here but they are now . The patient is going on and off jobs. He completed detox last admission, but didn't go to rehab and relapsed "right away." He is using 15 bags IV heroin and some IV cocaine. He started 3 years ago. He has been also using crack cocaine during the same time, and smoking marijuana but not every day. He smokes 1/2 ppd. He denies alcohol and other drugs. He has been to detox 6 times but never to rehabilitation. He now wants rehab. He denies psych symptoms. PMH: asthma, hepC Psych: denies FamHx: Mother - heroin ED: BAL <10, UDS + for opiates, cocaine, THC Consultations:: List each consultation separately and include: 1. Reason for request. 2. Findings. 3. Follow-up Summary of Hospital Course include:: 1. Description of specific treatment plan utilized for patients during their course of treatmen. 2. Summarize the time- course for resolution of acute symptoms and/or regressed behaviors. 3. Describe issues identified and worked on during hospitalization. 4. Describe medication utilized. 5. Describe medical problems identified and treated. 6. Reassessment of suicide risk Summary of Hospital Course: Patient was receiving withdrawal medications and started improving. He reported that he is feeling better. Today, he demanded to get signed out AMA. However, patient denied any feelings of hopelessness, helplessness, and worthlessness, denied any problem with the sleep or appetite, denied suicidal ideation or homicidal ideation. Pt denied any auditory or visual hallucinations. He denied any withdrawal symptoms. - Final Diagnosis (DSM 5) Condition upon Discharge: STABLE DSM 5: Opioid use disorder - severe Opioid withdrawal Cocaine use disorder - severe Cannabis use disorder - moderate Disposition: AGAINST MEDICAL ADVICE Follow-up Treatment Plan: Education: Pt was educated and counseled about the risks and benefits of taking and not taking medications. Pt was educated and counseled about the risks of drinking and abusing drugs. Pt was educated and counseled to go to the ER or call 911 if pt develop suicidal ideation or homicidal ideation, worsening of symptoms or severe side effects of the meds. - Smoking Cessation Smoking Cessation Medication prescribed: No - Antipsychotic Medications Pt discharged on 2 or more routine antipsychotic medications: No
== END 2018-02-04 17:14 | disposition left against medical advice (07) | DRG 770 ==
LOC: C.ER 02:34 → C.7D 05:10
PROC: HZ2ZZZZ Detoxification Services for Substance Abuse Treatment (ICD-10-PCS; principal; 2018-02-01)
PROC: HZ52ZZZ Individual Psychotherapy for Substance Abuse Treatment, Cognitive-Behavioral (ICD-10-PCS; 2018-02-01)
PROC: HZ59ZZZ Individual Psychotherapy for Substance Abuse Treatment, Supportive (ICD-10-PCS; 2018-02-01)
PROC: HZ56ZZZ Individual Psychotherapy for Substance Abuse Treatment, Psychoeducation (ICD-10-PCS; 2018-02-01)
PROC: HZ42ZZZ Group Counseling for Substance Abuse Treatment, Cognitive-Behavioral (ICD-10-PCS; 2018-02-01)
PROC: HZ46ZZZ Group Counseling for Substance Abuse Treatment, Psychoeducation (ICD-10-PCS; 2018-02-01)
PROC: GZHZZZZ Group Psychotherapy (ICD-10-PCS; 2018-02-01)
PROC: GZ58ZZZ Individual Psychotherapy, Cognitive-Behavioral (ICD-10-PCS; 2018-02-01)
PROC: GZ56ZZZ Individual Psychotherapy, Supportive (ICD-10-PCS; 2018-02-01)
DX: F11.23 Opioid dependence with withdrawal (principal); F14.20 Cocaine dependence, uncomplicated; F12.20 Cannabis dependence, uncomplicated; F17.210 Nicotine dependence, cigarettes, uncomplicated; J45.909 Unspecified asthma, uncomplicated; F41.9 Anxiety disorder, unspecified; Z86.19 Personal history of other infectious and parasitic diseases; Z81.3 Family history of other psychoactive substance abuse and dependence

== ENCOUNTER 2018-09-18 11:11 | Emergency (ER) | payer MEDICAID ==
[2018-09-18 11:11] VITALS: BMI 23.8
--- NOTE | 2018-09-18 11:16 | C.PDOC ---
History Of Present Illness 22 yr old M w/ hx of bronchitis, asthma, IV heroin and cocaine abuse p/w opiate withdrawals. Pt notes that the last time he used was last night, shooting up heroin into his R forearm. He denies any forearm pain or rash. No fall or t rauma. No intermittent fevers or LOPEZ. No fall or trauma. No headache. He notes mild chills and feeling achy diffuse. No neck pain or meningeal signs. No fall or trauma. No other complaints. Time Seen by Provider: 09/18/18 11:16 Chief Complaint (Nursing): Substance Abuse Past Medical History - Medical History PMH: Asthma, Bronchitis Denies: Depression, Diabetes, Hepatitis, HIV, HTN, Chronic Kidney Disease, Seizures, Sexually Transmitted Disease - [facility] Procedures DETOXIFICATION SERVICES FOR SUBSTANCE ABUSE TREATMENT (02/01/18) GROUP FOUNDRY SUPERVISOR FOR SUBSTANCE ABUSE TREATMENT, PSYCHOEDUCATION (02/01/18) GROUP FOUNDRY SUPERVISOR FOR SUBSTANCE ABUSE, COGNITIVE BEHAVIORAL (02/01/18) GROUP PSYCHOTHERAPY (02/01/18) INDIV PSYCHOTHERAPY FOR SUBSTANCE ABUSE TREATMENT, SUPPORT (02/01/18) INDIV PSYCHOTHERAPY FOR SUBSTANCE ABUSE, COGNITIV BEHAVIORAL (02/01/18) INDIV PSYCHOTHERAPY FOR SUBSTANCE ABUSE, PSYCHOEDUCATION (02/01/18) INDIVIDUAL PSYCHOTHERAPY, COGNITIVE-BEHAVIORAL (02/01/18) INDIVIDUAL PSYCHOTHERAPY, SUPPORTIVE (02/01/18) INJECT ANTIBIOTIC (06/17/13) INJECT/INFUSE NEC (07/01/14) MEDICATION MANAGEMENT (11/11/17) NEBULIZER THERAPY (03/02/07) PHARMACOTHERAPY FOR SUBSTANCE ABUSE, NICOTINE REPLACE (08/23/17) PSYCHIA INTERV/EVAL NEC (07/01/14) SUTURE OF LIP LACERATION (11/26/13) TETANUS TOXOID ADMINIST (07/16/12) VENOUS PUNCTURE NEC (07/01/14) Family History: States: Unknown Family Hx - Social History Hx Tobacco Use: Yes Hx Alcohol Use: Yes Hx Substance Use: Yes - Immunization History Hx Tetanus Toxoid Vaccination: Yes Hx Influenza Vaccination: No Hx Pneumococcal Vaccination: No Review Of Systems Constitutional: Positive for: Chills. Negative for: Fever, Sweats, Weakness Eyes: Negative for: Pain, Vision Change, Eyelid Inflammation, Redness ENT: Negative for: Ear Pain, Ear Discharge, Nose Pain, Nose Discharge, Nose Congestion, Mouth Pain, Mouth Swelling, Throat Pain, Throat Swelling Cardiovascular: Negative for: Chest Pain, Palpitations, Orthopnea, Edema Respiratory: Negative for: Cough, Shortness of Breath, SOB with Excertion, Pleuritic Pain Gastrointestinal: Positive for: Abdominal Pain (mild, epigastric). Negative for: Nausea, Vomiting, Diarrhea, Constipation, Melena, Hematochezia, Hematemesis Genitourinary: Negative for: Dysuria, Frequency Musculoskeletal: Negative for: Neck Pain, Shoulder Pain, Arm Pain, Back Pain, Hand Pain Skin: Negative for: Rash, Lesions Neurological: Negative for: Weakness, Numbness, Headache Psych: Positive for: Withdrawal. Negative for: Anxiety, Depression, Psychosis, Suicidal ideation Physical Exam - Physical Exam Appears: Well, Non-toxic, No Acute Distress Skin: Normal Color, Warm, Dry, No Rash Head: Atraumatic, Normacephalic Eye(s): bilateral: Normal Inspection, PERRL, EOMI Nose: No Flaring, No Discharge, No Epistaxis, No Deformity, No Tenderness, No Septal Hematoma, Other (mild clear rhinorrhea b/l) Oral Mucosa: Moist Tongue: Normal Appearing Lips: Normal Appearing, No Swelling, No Contusion, No Abrasion Teeth: Normal Dentition, No Caries, No Edentulous, No Dentures Gingiva: Normal Appearing, No Erythema, No Ulceration Throat: Normal, No Erythema, No Exudate Neck: Normal, Normal ROM, No Midline Cervical Tenderness, Supple, Other (no meningeal signs) Cardiovascular: Rhythm Regular, No Friction Rub, No Murmur, No JVD Respiratory: Normal Breath Sounds, No Rales, No Rhonchi, No Stridor, No Wheezing Gastrointestinal/Abdominal: Normal Exam, No Organomegaly, No Mass Back: Normal Inspection, No CVA Tenderness, No Vertebral Tenderness Extremity: Normal ROM Pulses: Left Radial: Normal, Right Radial: Normal Neurological/Psych: Oriented x3, Normal Speech, Normal Cognition, Normal Cranial Nerves, No Cerebellar Signs, Normal Motor Gait: Steady ED Course And Treatment - Laboratory Results Result Diagrams: 09/18/18 13:21 09/18/18 13:21 Medical Decision Making Medical Decision Makin yr old M w/ hx of bronchitis, asthma, IV heroin and cocaine abuse p/w heroin withdrawals. No meningeal signs or neck stiffness. No murmur noted on exam. No intermittent fevers or LOPEZ. No leg swelling or sob. mild rhinorrhea, clear. no cough. mild epigastric pain per pt but no signs of tenderness on exam. Likely withdrawal symptoms will seek labs, reassessment and clonidine for etoh withdrawal 1230 Seizure like activity noted by tech while drawing blood. Attended patient at bedside with RN, no signs of seizure like activity noted. Pt protecting airway well with GCS of 15 and MAEW. No postictal period noted. No tongue biting or enuresis. Will seek lactic to rule out seizure given possible malingering behavior to avoid [facility]. 1400 No signs of opiate or etoh withdrawal at this time, strong steady gait. labs unremarkable; lactic unremarkable. pt in nad and neuro exam remains unremarkable medically clear clear for d/c for incarceration with return indications and f/u Disposition - Disposition Referrals: Harsh Rosa MD [Staff Provider] - [email or web address] [Outside] Nurse Practitioner Hospitalist [facility] [Outside] [facility] [Outside] [facility] [Outside] Disposition: RELEASED IN POLICE CUSTODY Disposition Time: 14:01 Condition: STABLE Additional Instructions: Patient is medically cleared for incarceration HOLLY JIMENEZ, thank you for letting us take care of you today. Your provider was Jalen Polk and you were treated for NOT FEELING WELL. The emergency medical care you received today was directed at your acute symptoms. If you were prescribed any medication, please fill it and take as directed. It may take several days for your symptoms to resolve. Return to the Emergency Department if your symptoms worsen, do not improve, or if you have any other problems. Please contact your doctor or call one of the physicians/clinics you have been referred to that are listed on the Patient Visit Information form that is included in your discharge packet. Bring any paperwork you were given at discharge with you along with any medications you are taking to your follow up visit. Our treatment cannot replace ongoing medical care by a primary care provider outside of the emergency department. Thank you for allowing the [facility] team to be part of your care today. If you had an X-Ray or CT scan: A Radiologist will review the ED reading if any change in treatment is needed we will contact you. If you had a blood, urine, or wound culture: It will take several days for the results, if any change in treatment is needed we will contact you. If you had an STI test: It will take 48 hours for the results. Please call after 1 week if you have not heard back. Instructions: Drug Abuse and Drug Addiction (DC) Forms: [email or web address] ([place]) - Clinical Impression Clinical Impression: Drug abuse, Opioid abuse, Opiate withdrawal
[2018-09-18 11:20] VITALS: O2SAT 100
[2018-09-18 13:25] LABS: BASO % 0.8 % (0.0-2.0); EOS % 0.6 % (0.0-4.0); HEMOGLOBIN 13.3 g/dL (12.0-18.0); LYMPH # 0.9 K/uL (1.0-4.3); LYMPH % 25.8 % (20.0-40.0); MEAN CELL VOLUME 87.5 fL (80.0-94.0); MEAN CORPUSCULAR HEMOGLOBIN 30.3 pg (27.0-31.0); MEAN CORPUSCULAR HGB CONC 34.6 g/dL (33.0-37.0); MEAN PLATELET VOLUME 6.6 fL (7.2-11.7); MONO # 0.2 K/uL (0.0-0.8); MONO % 5.1 % (0.0-10.0); NEUT # 2.4 K/uL (1.8-7.0); NEUT % 67.7 % (50.0-75.0); NRBC % 0.1 % (0.0-2.0); RBC 4.38 Mil/uL (4.40-5.90); RED CELL DISTRIBUTION WIDTH 14.1 % (11.5-14.5); WHITE BLOOD COUNT 3.5 K/uL (4.8-10.8)
[2018-09-18 13:28] LABS: ARTERIAL BLOOD GAS HCO3 26.5 mmol/L (21-28); ARTERIAL BLOOD GAS PCO2 36 mm/Hg (35-45); ARTERIAL BLOOD GAS PH 7.46 (7.35-7.45); ARTERIAL BLOOD GAS PO2 96 mm/Hg (80-100); ARTERIAL BLOOD GAS TCO2 26.7 mmol/L (22-28)
[2018-09-18 13:38] LABS: ACETAMINOPHEN < 10.0 ug/mL (10.0-30.0); SALICYLATE < 1.0 mg/dL 1
[2018-09-18 13:40] LABS: ALB/GLOB RATIO 1.3 (1.0-2.1); ALBUMIN 4.2 g/dL (3.5-5.0); ALT/SGPT 42 U/L (21-72); AST/SGOT 44 U/L (17-59); BLOOD UREA NITROGEN 13 mg/dL (9-20); CALCIUM 9.2 mg/dl (8.6-10.4); GFR NON-AFRICAN AMERICAN > 60; LIPASE 516 U/L (23-300)
[2018-09-18 14:06] VITALS: BP 116/74; PULSE 70; RESP 16; TEMP 99.1
== END 2018-09-18 14:27 ==
LOC: C.ER 11:11
DX: F11.23 Opioid dependence with withdrawal (principal)
CPT/HCPCS: 80053; 82550; 82803; 83690; 85025; 99284; G0480